=== PATIENT | female | born 1960 | race Caucasian/White ===

== ENCOUNTER 2019-07-01 06:00 | Day surgery (SDC) | payer OTHER ==
[~2019-07-01] VITALS: Ht 152.4 cm; Wt 81.6 kg
[2019-07-01] MEDS ORDERED: SEVOFLURANE 250 ML BTL INH ONE (07:32)
[2019-07-01] MEDS ORDERED: LIDOCAINE 2% 100 MG/5 ML SYR IVP ONE (07:32)
[2019-07-01] MEDS ORDERED: PROPOFOL 200 MG/20 ML VIAL IV ONE (07:32)
[2019-07-01] MEDS ORDERED: KETOROLAC 30 MG/ML VIAL ONE (07:32)
[2019-07-01] MEDS ORDERED: MIDAZOLAM 2 MG/2 ML VIAL ONE (07:34)
[2019-07-01] MEDS ORDERED: fentaNYL 0.05 MG/ML VIAL ONE (07:34)
[2019-07-01] MEDS ORDERED: BUPIVACAINE-MPF/EPI 0.5% 30 ML VIAL INJ ONE (07:40)
[2019-07-01] MEDS ORDERED: HYDROmorphone 1 MG/ML AMP IVP PRN ×2 (08:05→08:50)
[2019-07-01] MEDS ORDERED: BLOOD GLUCOSE MONITORING 1 DEV DEV FS SCH (08:05)
[2019-07-01] MEDS ORDERED: ONDANSETRON 4 MG/2 ML VIAL IVP PRN (08:05)
[2019-07-01] MEDS ORDERED: MORPHINE SULFATE 2 MG/ML SYR IVP PRN (08:50)
[2019-07-01] MEDS ORDERED: HYDROcodone/APAP 5/325 MG 1 TAB TAB PO PRN (08:50)
[2019-07-01] MEDS ORDERED: ONDANSETRON 4 MG/2 ML VIAL IV PRN (08:50)
[2019-07-01] MEDS ORDERED: MORPHINE SULFATE 4 MG/ML SYR IV PRN (08:50)
== END 2019-07-01 10:05 | disposition home or self-care (01) ==
LOC: MOR 06:00 → MMU 06:00 → MOR 10:05
PROVIDERS: ATTEND Surgery
DX: C43.59 Malignant melanoma of other part of trunk (principal); M06.9 Rheumatoid arthritis, unspecified; E66.9 Obesity, unspecified; E11.9 Type 2 diabetes mellitus without complications; I49.3 Ventricular premature depolarization; Z79.84 Long term (current) use of oral hypoglycemic drugs
CPT/HCPCS: 11601; 12031; 71045; 88305; J0690; J1885; J2001; J2250; J2704; J3010; J3490; J7030; J7060